=== PATIENT | female | born 1965 | race Caucasian/White ===

== ENCOUNTER 2018-02-28 22:21 | Emergency (ER) | payer MEDICAID, OTHER ==
[~2018-02-28] VITALS: Ht 172.7 cm; Wt 95.0 kg
[~2018-02-28 22:21] MED LIST: ATOR10TA PO; CLAR10 PO; HYDR12.529 PO; KETO10TA2 PO; LISI10TA5 PO; OMEP20CA10 PO; SENN-3 PO; SIMV10TA6 PO; TRAM50TA3 PO
[2018-02-28] MEDS ORDERED: KETOROLAC 60MG/2ML VIAL IM STA (23:43)
[2018-03-01 00:48] LABS: BASOPHILS % 0.4 % (0.0-2.0); EOSINOPHILS % 3.4 % (0.0-5.0); HEMATOCRIT. 39.3 % (36.0-48.0); HEMOGLOBIN. 13.2 g/dL (12.0-16.0); LYMPHOCYTES % 39.8 % (20.0-50.0); MEAN CORPUSCULAR HEMOGLOBIN 29.9 pg (28.0-32.0); MEAN CORPUSCULAR VOLUME 89.4 fL (81.0-99.0); MEAN PLATELET VOLUME 10.3 fl (7.4-10.4); MONOCYTES % 10.4 % (2.0-8.0); PLATELET 177 x1000/uL (130-400); RED CELL DISTRIBUTION WIDTH 13.7 % (11.6-14.6)
[2018-03-01 00:53] LABS: CHLORIDE 104 mEq/L (98-107)
[2018-03-01 04:37] VITALS: BP 142/83
== END 2018-03-01 04:41 | disposition home or self-care (01) ==
LOC: ER 22:21
DX: M54.2 Cervicalgia (principal); R10.13 Epigastric pain; M54.89 Other dorsalgia; M25.512 Pain in left shoulder; M25.511 Pain in right shoulder; E78.00 Pure hypercholesterolemia, unspecified; I10 Essential (primary) hypertension; Z79.899 Other long term (current) drug therapy; Z88.6 Allergy status to analgesic agent; Z98.890 Other specified postprocedural states
CPT/HCPCS: 36415; 71045; 72125; 76705; 80053; 83690; 85025; 96372; 99285; J1885; Z7610; L0172

== ENCOUNTER 2022-04-05 09:43 | Emergency (ER) | payer MEDICARE, MEDICAID ==
[~2022-04-05] VITALS: Ht 167.6 cm; Wt 80.0 kg
[~2022-04-05 09:43] MED LIST changes: +HYDR-4001 MT; +LISI10TA26 PO; -LISI10TA5 PO; -OMEP20CA10 PO; +OMEP20CA14 PO; -SIMV10TA6 PO; +SIMV10TA97 PO
[2022-04-05 11:02] LABS: BASOPHILS % 0.5 % (0.0-2.0); EOSINOPHILS % 2.3 % (0.0-5.0); HEMATOCRIT. 40.5 % (36.0-48.0); HEMOGLOBIN. 13.8 g/dL (12.0-16.0); LYMPHOCYTES % 35.9 % (20.0-50.0); MEAN CORPUSCULAR HEMOGLOBIN 30.5 pg (28.0-32.0); MEAN CORPUSCULAR VOLUME 89.8 fL (81.0-99.0); MEAN PLATELET VOLUME 10.6 fl (7.4-10.4); MONOCYTES % 8.7 % (2.0-8.0); NEUTROPHILS % 52.6 % (40.0-76.0); PLATELET 142 x1000/uL (130-400); RED BLOOD CELL COUNT 4.51 mill/uL (4.2-5.4); RED CELL DISTRIBUTION WIDTH 13.7 % (11.6-14.6)
[2022-04-05 11:09] LABS: CLARITY URINE CLEAR (CLEAR); COLOR URINE DARK YELLOW (YELLOW); KETONES URINE TRACE (NEGATIVE); LEUKOCYTE ESTERASE URINE 2+ (NEGATIVE); NITRITE URINE NEGATIVE (NEGATIVE); OCCULT BLOOD URINE NEGATIVE (NEGATIVE); PH URINE 5.5 (4.5-8.0); PROTEIN URINE TRACE (NEGATIVE); SPECIFIC GRAVITY URINE 1.026 (1.005-1.030)
[2022-04-05 11:10] LABS: CHLORIDE 111 mEq/L (98-107)
[2022-04-05 12:33] LABS: INR 1.1; PROTHROMBIN TIME 11.5 sec (9.6-11.0)
[2022-04-05] MEDS ORDERED: KETOROLAC 30MG/ML VIAL IV ONE (13:15)
[2022-04-05 13:27] VITALS: BP 107/78
[2022-04-05] MEDS ORDERED: NITR-87 MT ×3 (13:56→14:13)
== END 2022-04-05 14:16 | disposition home or self-care (01) ==
LOC: ER 09:43
DX: N30.90 Cystitis, unspecified without hematuria (principal); E78.00 Pure hypercholesterolemia, unspecified; I10 Essential (primary) hypertension; Z79.899 Other long term (current) drug therapy; Z98.890 Other specified postprocedural states
CPT/HCPCS: 36415; 74176; 76830; 76856; 80053; 81003; 83690; 85025; 85610; 96374; 99284; J1885

== ENCOUNTER 2022-10-22 07:13 | Emergency (ER) | payer OTHER, MEDICAID ==
[~2022-10-22] VITALS: Ht 170.2 cm; Wt 83.0 kg
[~2022-10-22 07:13] MED LIST changes: +NITR-87 MT
[2022-10-22] MEDS ORDERED: KETOROLAC 60MG/2ML VIAL IM ONE (08:45)
[2022-10-22] MEDS ORDERED: DEXAMETHASONE 10 MG/ML VIAL IM ONE (08:45)
[2022-10-22] MEDS ORDERED: ACETAMINOPHEN 325MG TABLET PO ONE (08:45)
[2022-10-22] MEDS ORDERED: LIDOCAINE 5% PATCH TOP SCH (08:45)
[2022-10-22] MEDS ORDERED: CYCL10TA21 MT (12:24)
[2022-10-22 12:45] VITALS: BP 117/74
== END 2022-10-22 13:06 | disposition home or self-care (01) ==
LOC: ER 07:13
DX: M79.605 Pain in left leg (principal); I10 Essential (primary) hypertension; E78.00 Pure hypercholesterolemia, unspecified; Z98.890 Other specified postprocedural states; Z79.899 Other long term (current) drug therapy
CPT/HCPCS: 93971; 99284; J1100

== ENCOUNTER 2023-11-15 14:18 | Emergency (ER) | payer OTHER, MEDICAID ==
[~2023-11-15] VITALS: Ht 170.2 cm; Wt 85.7 kg
[~2023-11-15 14:18] MED LIST changes: +CYCL10TA21 MT
[2023-11-15 14:34] VITALS: O2SAT 99
[2023-11-15] MEDS: KETOROLAC 30MG/ML VIAL IM ONE (14:45)
[2023-11-15] MEDS: ACETAMINOPHEN 500MG TABLET PO ONE (14:45)
[2023-11-15 15:06] LABS: CHLORIDE 105 mEq/L (98-107); POTASSIUM 4.8 mEq/L (3.5-5.1); SODIUM 137 mEq/L (136-145)
[2023-11-15 15:07] LABS: CALCIUM 9.1 mg/dL (8.7-10.4); CARBON DIOXIDE 26 mEq/L (21-32)
[2023-11-15 15:10] LABS: BASOPHILS % 0.4 % (0.0-2.0); EOSINOPHILS % 2.8 % (0.0-5.0); HEMOGLOBIN. 14.1 g/dL (12.0-16.0); LYMPHOCYTES % 32.4 % (20.0-50.0); MEAN CORPUSCULAR HEMOGLOBIN 31.1 pg (28.0-32.0); MEAN CORPUSCULAR HGB CONC 33.5 g/dL (31.0-37.0); MEAN CORPUSCULAR VOLUME 92.9 fL (81.0-99.0); MEAN PLATELET VOLUME 10.1 fl (7.4-10.4); MONOCYTES % 8.3 % (2.0-8.0); NEUTROPHILS % 56.1 % (40.0-76.0); PLATELET 214 x1000/uL (130-400); RED BLOOD CELL COUNT 4.53 mill/uL (4.2-5.4); RED CELL DISTRIBUTION WIDTH 14.1 % (11.6-14.6)
[2023-11-15 15:12] LABS: CREATININE 0.9 mg/dL (0.6-1.0); GLUCOSE 87 mg/dL (70-105); UREA NITROGEN BLOOD 13 mg/dL (9-23)
[2023-11-15 15:28] LABS: ALANINE AMINOTRANSFERASE 19 IU/L (10-49); ALBUMIN 4.2 g/dL (3.2-4.8); ASPARTATE AMINOTRANSFERASE 19 IU/L (<34); BILIRUBIN DIRECT 0.2 mg/dL (<=3.0); BILIRUBIN TOTAL 0.7 mg/dL (0.1-1.0); PROTEIN TOTAL 7.4 g/dL (6.0-8.3)
[2023-11-15 16:25] LABS: CLARITY URINE CLEAR (CLEAR); COLOR URINE DARK YELLOW (YELLOW); GLUCOSE URINE NEGATIVE (NEGATIVE); KETONES URINE NEGATIVE (NEGATIVE); LEUKOCYTE ESTERASE URINE 1+ (NEGATIVE); NITRITE URINE NEGATIVE (NEGATIVE); OCCULT BLOOD URINE NEGATIVE (NEGATIVE); PROTEIN URINE NEGATIVE (NEGATIVE); SPECIFIC GRAVITY URINE 1.021 (1.005-1.030)
[2023-11-15 17:02] LABS: BACTERIA URINE TRACE; RBC URINE 0-2 /hpf (0-2); SQUAMOUS EPITHELIAL CELL URINE 1+ /lpf (RARE/1+)
[2023-11-15] MEDS ORDERED: ACET-2708 MT (17:12)
[2023-11-15 17:20] VITALS: BP 121/86; PULSE 89; RESP 19; TEMP 98
== END 2023-11-15 17:33 | disposition home or self-care (01) ==
LOC: ER 14:18
DX: N39.0 Urinary tract infection, site not specified (principal); K57.90 Diverticulosis of intestine, part unspecified, without perforation or abscess without bleeding; E78.00 Pure hypercholesterolemia, unspecified; I10 Essential (primary) hypertension; Z79.899 Other long term (current) drug therapy
CPT/HCPCS: 99285; 74176; 80076; 80048; 81003; 83690; 85025; 36415; 96372; J1885

== ENCOUNTER 2024-05-02 14:40 | Emergency (ER) | payer OTHER, MEDICAID ==
[~2024-05-02] VITALS: Ht 170.2 cm; Wt 83.0 kg
[~2024-05-02 14:40] MED LIST changes: +ACET-2708 MT
[2024-05-02 14:47] VITALS: O2SAT 97
[2024-05-02 15:06] VITALS: BP 115/77; PULSE 60; TEMP 97.9; O2SAT 97
[2024-05-02 17:00] VITALS: RESP 17
[2024-05-02] MEDS: KETOROLAC 30MG/ML VIAL IM ONE (17:30)
== END 2024-05-02 18:44 | disposition home or self-care (01) ==
LOC: ER 14:40
DX: G89.29 Other chronic pain (principal); M54.9 Dorsalgia, unspecified; E78.00 Pure hypercholesterolemia, unspecified; I10 Essential (primary) hypertension; Z79.899 Other long term (current) drug therapy; Z88.5 Allergy status to narcotic agent; Z90.49 Acquired absence of other specified parts of digestive tract; Z90.710 Acquired absence of both cervix and uterus; Z98.890 Other specified postprocedural states
CPT/HCPCS: 99283; 96372; J1885

== ENCOUNTER 2024-08-07 14:29 | Emergency (ER) | payer OTHER, MEDICAID ==
[~2024-08-07] VITALS: Ht 167.6 cm; Wt 80.0 kg
[2024-08-07 14:35] VITALS: O2SAT 99
[2024-08-07] MEDS ORDERED: LIDO700A15 TP (22:22)
[2024-08-07] MEDS ORDERED: KETO10TA2 MT (22:22)
[2024-08-07] MEDS: KETOROLAC 30MG/ML VIAL IM ONE (23:07)
[2024-08-07 23:35] VITALS: BP 135/86; PULSE 82; RESP 17; TEMP 37.61412
== END 2024-08-07 23:35 | disposition home or self-care (01) ==
LOC: ER 14:29
DX: G89.29 Other chronic pain (principal); M54.50 Low back pain, unspecified; I10 Essential (primary) hypertension; E78.00 Pure hypercholesterolemia, unspecified; Z90.710 Acquired absence of both cervix and uterus; Z90.49 Acquired absence of other specified parts of digestive tract; Z79.899 Other long term (current) drug therapy; Z88.5 Allergy status to narcotic agent
CPT/HCPCS: 99283; 96372; J1885

== ENCOUNTER 2024-08-09 09:29 | Emergency (ER) | payer MEDICARE, MEDICAID ==
[~2024-08-09] VITALS: Ht 165.1 cm; Wt 86.0 kg
[~2024-08-09 09:29] MED LIST changes: +KETO10TA2 MT; +LIDO700A15 TP
[2024-08-09 09:31] VITALS: TEMP 98.6; O2SAT 98
[2024-08-09 09:32] VITALS: O2SAT 100
[2024-08-09] MEDS ORDERED: IBUP-2028 MT (12:35)
[2024-08-09] MEDS ORDERED: CYCL10TA21 MT (12:35)
[2024-08-09] MEDS ORDERED: LIDO700A30 TP (12:35)
[2024-08-09 12:52] VITALS: BP 130/87; PULSE 82; RESP 18
[2024-08-09] MEDS: KETOROLAC 15MG/ML VIAL IM ONE (12:52)
[2024-08-09] MEDS: CYCLOBENZAPRINE 10MG TABLET PO ONE (12:52)
[2024-08-09] MEDS: LIDOCAINE 5% PATCH TOP SCH (12:52)
== END 2024-08-09 13:58 | disposition home or self-care (01) ==
LOC: ER 09:42
DX: G89.29 Other chronic pain (principal); M54.50 Low back pain, unspecified; E11.9 Type 2 diabetes mellitus without complications; E78.00 Pure hypercholesterolemia, unspecified; I10 Essential (primary) hypertension; Z79.899 Other long term (current) drug therapy; Z90.49 Acquired absence of other specified parts of digestive tract; Z90.710 Acquired absence of both cervix and uterus; Z88.5 Allergy status to narcotic agent
CPT/HCPCS: 99283; J1885

== ENCOUNTER 2025-03-03 23:02 | Emergency (ER) | payer MEDICARE, MEDICAID ==
[~2025-03-03] VITALS: Ht 170.2 cm; Wt 82.0 kg
[~2025-03-03 23:02] MED LIST changes: +IBUP-2028 MT; +LIDO-53 TP; -LIDO700A15 TP; +LIDO700A30 TP
[2025-03-03 23:14] VITALS: O2SAT 98
[2025-03-04 00:34] LABS: CREATININE 1.0 mg/dL (0.6-1.0)
[2025-03-04 00:35] LABS: UREA NITROGEN BLOOD 14 mg/dL (9-23)
[2025-03-04 00:36] LABS: ASPARTATE AMINOTRANSFERASE 17 IU/L (<34)
[2025-03-04 00:37] LABS: BILIRUBIN DIRECT 0.2 mg/dL (<=3.0); BILIRUBIN TOTAL 0.8 mg/dL (0.1-1.0); PROTEIN TOTAL 7.7 g/dL (6.0-8.3)
[2025-03-04 01:29] LABS: BASOPHILS % 0.3 % (0.0-2.0); EOSINOPHILS % 2.0 % (0.0-5.0); HEMATOCRIT. 40.5 % (36.0-48.0); HEMOGLOBIN. 13.8 g/dL (12.0-16.0); LYMPHOCYTES % 28.9 % (20.0-50.0); MEAN PLATELET VOLUME 10.6 fl (7.4-10.4); MONOCYTES % 11.4 % (2.0-8.0); NEUTROPHILS % 57.4 % (40.0-76.0); PLATELET 180 x1000/uL (130-400); RED BLOOD CELL COUNT 4.47 mill/uL (4.2-5.4); RED CELL DISTRIBUTION WIDTH 14.1 % (11.6-14.6)
[2025-03-04 01:46] LABS: CLARITY URINE CLEAR (CLEAR); COLOR URINE YELLOW (YELLOW); GLUCOSE URINE NEGATIVE (NEGATIVE); KETONES URINE NEGATIVE (NEGATIVE); LEUKOCYTE ESTERASE URINE 2+ (NEGATIVE); NITRITE URINE NEGATIVE (NEGATIVE); OCCULT BLOOD URINE NEGATIVE (NEGATIVE); PH URINE 6.0 (4.5-8.0); PROTEIN URINE NEGATIVE (NEGATIVE); SPECIFIC GRAVITY URINE 1.007 (1.005-1.030); UROBILINOGEN URINE 0.2 E.U./dL (0.2-1.0)
[2025-03-04 02:01] LABS: RBC URINE 0-2 /hpf (0-2); SQUAMOUS EPITHELIAL CELL URINE 1+ /lpf (RARE/1+)
[2025-03-04 02:02] LABS: BACTERIA URINE 1+
[2025-03-04] MEDS ORDERED: CEPH500C2 MT (05:59)
[2025-03-04] MEDS ORDERED: ACET-2708 MT (06:23)
[2025-03-04] MEDS: ACETAMINOPHEN 500MG TABLET PO ONE (06:30)
[2025-03-04 06:55] VITALS: BP 100/62; PULSE 72; RESP 13; TEMP 36.9; O2SAT 97
== END 2025-03-04 07:09 | disposition home or self-care (01) ==
LOC: ER 23:02
DX: N39.0 Urinary tract infection, site not specified (principal); E78.00 Pure hypercholesterolemia, unspecified; I10 Essential (primary) hypertension; Z90.710 Acquired absence of both cervix and uterus; Z90.49 Acquired absence of other specified parts of digestive tract; Z79.899 Other long term (current) drug therapy; Z88.5 Allergy status to narcotic agent
CPT/HCPCS: 36415; 74176; 80048; 80076; 81003; 85025; 99285